=== PATIENT | male | born 1970 | race Caucasian/White ===

== ENCOUNTER → 2018-12-13 | Outpatient (CLI) | payer OTHER ==
--- NOTE | 2018-12-13 11:26 | PCVCIMAG ---
EXAM: VENOUS DUPLEX INFERIOR VENA CAVA AND ILIAC VEINS BILATERALLY INDICATION: Leg pain and swelling. Previous right common iliac vein stent. FINDINGS: Inferior vena cava: IVC is patent where visualized. Right iliac veins: The right common and external iliac veins are patent as is the common femoral vein. Previous common iliac vein stent maintaining satisfactory patency. Left iliac veins: The right common and external iliac veins are patent as is the common femoral vein. IMPRESSION: IVC and right and left iliac veins are patent. Previous right common iliac vein stent maintaining satisfactory patency. LOC:[id number]
== END | disposition home or self-care (01) ==
LOC: PCVCIMAG 10:42
PROVIDERS: ATTEND Nuclear Medicine Nuclear Cardiology
DX: I87.2 Venous insufficiency (chronic) (peripheral) (principal)
CPT/HCPCS: 93976